=== PATIENT | female | born 1955 | race African-American/Black ===

== ENCOUNTER 2025-03-02 10:53 | Inpatient (IN) | payer MEDICARE, MEDICAID ==
[~2025-03-02] VITALS: Ht 152.4 cm; Wt 74.8 kg
[~2025-03-02 10:53] MED LIST: AMLO5TAB5 PO
[2025-03-02] MEDS: MECLIZINE 25MG TABLET PO ONE (12:30)
[2025-03-02] MEDS: ACETAMINOPHEN 325MG TABLET PO ONE (12:30)
[2025-03-02 13:06] LABS: BASOPHILS % 0.4 % (0.0-2.0); DIFFERENTIAL COMMENT 0; EOSINOPHILS % 1.2 % (0.0-5.0); HEMATOCRIT. 39.5 % (36.0-48.0); HEMOGLOBIN. 12.1 g/dL (12.0-16.0); LYMPHOCYTES % 35.8 % (20.0-50.0); MEAN CORPUSCULAR HGB CONC 30.5 g/dL (31.0-37.0); MEAN CORPUSCULAR VOLUME 75.4 fL (81.0-99.0); MEAN PLATELET VOLUME 9.7 fl (7.4-10.4); MONOCYTES % 11.1 % (2.0-8.0); NEUTROPHILS % 51.5 % (40.0-76.0); PLATELET 174 x1000/uL (130-400); RED BLOOD CELL COUNT 5.25 mill/uL (4.2-5.4); RED CELL DISTRIBUTION WIDTH 15.2 % (11.6-14.6); WHITE BLOOD COUNT 4.2 x1000/uL (4.5-11.0)
[2025-03-02 13:18] LABS: CHLORIDE 107 mEq/L (98-107); POTASSIUM 3.9 mEq/L (3.5-5.1); SODIUM 141 mEq/L (136-145)
[2025-03-02 13:20] LABS: CALCIUM 9.7 mg/dL (8.7-10.4); CARBON DIOXIDE 27 mEq/L (21-32)
[2025-03-02 13:25] LABS: CREATININE 0.7 mg/dL (0.6-1.0); GLUCOSE 85 mg/dL (70-105); TROPONIN I HIGH SENSITIVITY 4 ng/L (3.0-34); UREA NITROGEN BLOOD 8 mg/dL (9-23)
[2025-03-02 13:26] LABS: ALANINE AMINOTRANSFERASE 19 IU/L (10-49); ALBUMIN 4.2 g/dL (3.2-4.8)
[2025-03-02 13:27] LABS: ASPARTATE AMINOTRANSFERASE 22 IU/L (<34); BILIRUBIN DIRECT 0.1 mg/dL (<=3.0); BILIRUBIN TOTAL 0.5 mg/dL (0.1-1.0); PROTEIN TOTAL 8.9 g/dL (6.0-8.3)
[2025-03-02] MEDS ORDERED: METRONIDAZOLE 500 MG PREMIX 100 ML IV ONE (14:30)
[2025-03-02] MEDS: LEVOFLOXACIN 750MG PREMIX 150 ML IV ONE (14:53)
[2025-03-02 15:09] LABS: TROPONIN I HIGH SENSITIVITY 4 ng/L (3.0-34)
[2025-03-02] MEDS ORDERED: NALOXONE HCL 0.4MG/ML VIAL IV PRN (16:45)
[2025-03-02] MEDS ORDERED: HYDROCODONE/ACETAMINOPHEN 5/325MG TABLET PO PRN (16:45)
[2025-03-02] MEDS ORDERED: ONDANSETRON HCL 4MG/2ML INJ IV PRN (16:45)
[2025-03-02 17:25] VITALS: BP 155/63; PULSE 83; RESP 20; TEMP 37.2; O2SAT 99
[2025-03-02] MEDS: AMLODIPINE 10MG TABLET PO SCH (18:16)
[2025-03-02] MEDS: PIPERACILLIN/TAZO 3.375G/50ML 50 ML IV SCH (18:20)
[2025-03-02 19:39] VITALS: BP 155/63; PULSE 83; RESP 18; TEMP 37.2
[2025-03-02 20:00] VITALS: BP 135/58; PULSE 84; RESP 20; TEMP 36.2; O2SAT 97
[2025-03-02 23:32] VITALS: BP 121/58; PULSE 78; RESP 18; TEMP 36.6; O2SAT 97
[2025-03-03 04:02] VITALS: BP 119/65; PULSE 70; RESP 18; TEMP 36.4; O2SAT 100
[2025-03-03 08:00] VITALS: BP 135/76; PULSE 74; RESP 20; TEMP 37.1; O2SAT 99
[2025-03-03 10:50] VITALS: BP 138/80; PULSE 90; RESP 20; TEMP 36.8; O2SAT 100
[2025-03-03 16:30] VITALS: BP 123/56; PULSE 91; RESP 20; TEMP 36.7; O2SAT 100
[2025-03-03 20:00] VITALS: BP 132/73; PULSE 95; RESP 19; TEMP 36.3; O2SAT 100
[2025-03-04] VITALS: BP 120/62; PULSE 82; RESP 19; TEMP 36.4; O2SAT 98
[2025-03-04 04:00] VITALS: BP 106/61; PULSE 74; RESP 19; TEMP 36.4; O2SAT 74
[2025-03-04 08:00] VITALS: BP 167/76; PULSE 80; RESP 18; TEMP 36.6; O2SAT 100
[2025-03-04 12:00] VITALS: BP 139/64; PULSE 75; RESP 18; TEMP 36.1; O2SAT 98
[2025-03-04] MEDS ORDERED: METR375C2 MT (12:47)
[2025-03-04] MEDS ORDERED: LEVO750T68 MT (12:47)
[2025-03-04] MEDS: PIPERACILLIN/TAZO 3.375G/50ML 50 ML IV NR (14:28)
[2025-03-04 14:42] VITALS: BP 138/75; PULSE 85; TEMP 97.6; O2SAT 98
== END 2025-03-04 16:17 | disposition home or self-care (01) | DRG 74 ==
LOC: ER 10:53 → EDBEDREQ 12:46 → 7WST 14:21 → EDBEDREQTM 14:36 → EDBEDREQ 14:36 → 8EST 03-03 10:31
PROVIDERS: ADMIT Internal Medicine; ATTEND Internal Medicine
DX: G90.89 Other disorders of autonomic nervous system (principal); K57.32 Diverticulitis of large intestine without perforation or abscess without bleeding; E66.9 Obesity, unspecified; I10 Essential (primary) hypertension; Z90.710 Acquired absence of both cervix and uterus; Z68.32 Body mass index [BMI] 32.0-32.9, adult
CPT/HCPCS: 36415; 71045; 74176; 80048; 80076; 84484; 85025; 93005; 99285; J1956; J2543; J8597